=== PATIENT | female | born 1990 | race African-American/Black ===

== ENCOUNTER 2018-02-28 12:03 | Emergency (ER) | payer MEDICAID ==
[~2018-02-28] VITALS: Ht 157.5 cm; Wt 76.2 kg
[~2018-02-28 12:03] MED LIST: IBUPROFEN600 MG ORAL
[2018-02-28] MEDS ORDERED: NKM (12:18)
[2018-02-28 12:45] VITALS: BP 109/66
[2018-02-28] MEDS ORDERED: Tylenol #3 tab (300mg/30mg) ORAL ONE (12:45)
--- NOTE | 2018-02-28 13:45 | Diagnostic Imaging Report ---
Indication: Headache Technique: Contiguous 5 mm thick transaxial imaging of the head obtained in a Siemens Sensation [address] scanner. Soft tissue and bone windows generated. Automatic Exposure Control was utilized. Total Dose length Product (DLP): 1934.[address] Dose Index Volume (CTDIvol): 70.38,28.19 mGy Comparison: none Findings: The size and configuration of the cortical sulci, basal cisterns, and ventricles are within normal limits for age. There is no mass effect, midline shift, or edema identified. There is no evidence of acute hemorrhage or abnormal intra-axial or extra-axial fluid collections. The bones and soft tissues are unremarkable. Impression: No mass effect, edema or acute bleed. The CT scanner at [facility] is accredited by the [employer] and the scans are performed using dose optimization techniques as appropriate to a performed exam including Automatic Exposure control.
--- NOTE | 2018-02-28 13:47 | Diagnostic Imaging Report ---
Indication: Trauma. Acute nasal fracture. Facial pain Technique: Continuous helical transaxial imaging of the maxillofacial structures obtained without intravenous contrast administration. Coronal 2-D reformats were also obtained. Study obtained in a Siemens sensation [address] Automatic Exposure Control was utilized. Total Dose length Product (DLP): 1934.[address] Dose Index Volume (CTDIvol): 70.38,28.19 mGy Comparison: None Findings: There is acute comminuted fracture of the nasal bone bilaterally. There is a fluid retention cyst in the right maxillary sinus. No other fractures are seen. The orbits appear symmetric. There is no retrobulbar hemorrhage or proptosis. Mastoids are clear. TMJs are unremarkable. IMPRESSION: Comminuted bilateral nasal fracture. Right maxillary fluid retention cysts The CT scanner at [facility] is accredited by the [employer] and the scans are performed using dose optimization techniques as appropriate to a performed exam including Automatic Exposure control.
[2018-02-28] MEDS ORDERED: IBUPROFEN600 MG ORAL (13:59)
[2018-02-28] MEDS ORDERED: NORCO 5-325 TA1 EACH ORAL (13:59)
[2018-02-28 14:55] VITALS: BP 109/66
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
== END 2018-02-28 14:45 | disposition home or self-care (01) ==
LOC: EMR 12:53
DX: S02.2XXA Fracture of nasal bones, initial encounter for closed fracture (principal); Y04.2XXA Assault by strike against or bumped into by another person, initial encounter; Y92.9 Unspecified place or not applicable; J34.1 Cyst and mucocele of nose and nasal sinus; Z88.0 Allergy status to penicillin
CPT/HCPCS: 70450; 70486; 99284